=== PATIENT | female | born 1955 | race Hispanic/Latino ===

== ENCOUNTER → 2017-07-25 | Outpatient (CLI) | payer BC ==
--- NOTE | 2017-07-26 09:58 | US ---
EXAM DESCRIPTION: Pelvic,Non-OB: Ultrasound. CLINICAL HISTORY: ABN UTERINE AND VAGINAL BLEEDING COMPARISON: None. TECHNIQUE: Transcutaneous scanning through the urine filled bladder. Endovaginal scanning. Two-dimensional and Doppler modes. FINDINGS: Uterus 8.3 x 5.3 x 4.6 cm. Endometrial thickness 3.4 mm. The myometrium appears heterogeneous. Echogenic mass subcapsular anterior measuring 2.2 x 2.0 x 0.9 cm minimal vascularity. A second echogenic fibroid with long axis measurement 1.5 cm. The uterus is not retroverted. Cervix unremarkable. Cul-de-sac contains no fluid. Right ovary 10 x 9 x 6 mm. Normal Vascularity Doppler. No cysts. No adnexal mass or free fluid. Left ovary not visible in the left adnexa. No adnexal mass or free fluid. IMPRESSION: 1. 2.2 cm fibroid in the anterior uterus with minimal vascularity. Other smaller fibroids. Uterus is not enlarged. No endometrial thickening or fluid. Cervix unremarkable. No fluid in the cul-de-sac. 2. Small right ovary visualized with vascularity. Left ovary not visualized. No free fluid or adnexal mass. Electronically signed by: Terrell Linares MD 07/26/2017 9:57 AM [employer]
== END | disposition home or self-care (01) ==
LOC: LAB.O 12:02
PROVIDERS: ATTEND Nurse Practitioner Family
DX: N93.9 Abnormal uterine and vaginal bleeding, unspecified (principal)

== ENCOUNTER → 2017-08-29 | Outpatient (CLI) | payer BC | LOC: MAMMO 12:21 | PROVIDERS: ATTEND Obstetrics & Gynecology | DX: Z12.31 Encounter for screening mammogram for malignant neoplasm of breast (principal) ==